=== PATIENT | female | born 1940 | race Caucasian/White ===

== ENCOUNTER → 2017-07-21 | Outpatient (CLI) | payer MEDICARE ==
[~2017-07-21] MED LIST: ACYC400 PO; BENA20 PO; CHOL10002 PO; FEOSOL PO; FERSU220EL PO; FOLI1; FOLI1 PO; GABA300 PO; HYDACE10B PO; HYDR-86 PO; IRBE150 PO; LEVSOD50 PO; LEVSOD75 PO; METTREX2.5 PO; Norco 7.5-3251 EACH PO; OMEP20ER PO; OSTERA TABLET1 EACH PO; PROZAC20 MG PO; RANI150 PO; Rituxan10 MG/ML IV; TAMS.4ER PO; TRAZ150T57; TRAZ50 PO
== END | disposition home or self-care (01) ==
LOC: LAB SHORT 07:15 → PLD 07:15
DX: L57.0 Actinic keratosis (principal)
CPT/HCPCS: 88305

== ENCOUNTER 2019-04-25 13:54 | Inpatient (IN) | payer MEDICARE ==
[~2019-04-25] VITALS: Ht 152.4 cm; Wt 44.9 kg
[~2019-04-25 13:54] MED LIST changes: -CHOL10002 PO; -FEOSOL PO; -FOLI1; +Feosol45 MG PO; +Norco 10-325 T1 EACH PO; -Norco 7.5-3251 EACH PO; +TRAZ150T57 PO; -TRAZ50 PO; +VITAMIN D325 MCG PO
[2019-04-25] MEDS ORDERED: ALEN70 PO (14:11)
[2019-04-25] MEDS ORDERED: CARVEDILOL12.5 MG PO (14:12)
[2019-04-25] MEDS ORDERED: ACTEMRA80 MG/4 ML IV (14:12)
[2019-04-25] MEDS ORDERED: OMEPRAZOLE MAGN20 MG PO (14:13)
[2019-04-25] MEDS ORDERED: Prozac20 MG PO (14:13)
[2019-04-25] MEDS ORDERED: TAMS.4ER PO (14:14)
[2019-04-25] MEDS ORDERED: ATOR40TA PO (14:15)
[2019-04-25 14:48] LABS: Source, Urine Catheter
[2019-04-25 14:50] LABS: Bilirubin, Urine Neg (Neg); Blood, Urine Neg (Neg); Glucose Qualitative, Urine Neg (Neg); Ketones, Urine Neg (Neg); Leukocyte Esterase, Urine Neg (Neg); Nitrite, Urine Neg (Neg); Protein, Urine Neg (Neg); Urobilinogen, Urine NORM (Normal)
[2019-04-25 14:51] LABS: Appearance, Urine Clear (Clear); Color, Urine Yellow (P-Yellow)
[2019-04-25] MEDS ORDERED: ASCO500 PO (15:39)
[2019-04-25] MEDS ORDERED: ACYC800 PO (15:40)
[2019-04-25 15:47] LABS: BASOPHILS ABSOLUTE AUTO 0.06 K/mm3 (0.00-0.23); BASOPHILS PERCENT AUTO 1 % (0-2); EOSINOPHILS ABSOLUTE AUTO 0.18 K/mm3 (0.00-0.68); EOSINOPHILS PERCENT AUTO 2 % (0-6); Hematocrit 34.8 % (33.0-51.0); Hemoglobin 11.4 g/dL (11.5-16.0); IMMATURE GRAN ABSOLUTE AUTO 0.03 K/mm3 (0.00-0.10); IMMATURE GRAN PERCENT AUTO 0 % (0-1); LYMPHOCYTES ABSOLUTE AUTO 2.21 K/mm3 (0.84-5.20); LYMPHOCYTES PERCENT AUTO 25 % (21-46); MONOCYTES ABSOLUTE AUTO 1.03 K/mm3 (0.16-1.47); MONOCYTES PERCENT AUTO 11 % (4-13); Mean Corpuscular HGB 31.2 pg (26.0-34.0); Mean Corpuscular HGB Conc 32.8 g/dL (31.5-36.5); Mean Corpuscular Volume 95 fL (80-100); Mean Platelet Volume 9.9 fL (9.1-12.4); NEUTROPHILS PERCENT AUTO 61 % (41-73); Platelet Count 219 K/mm3 (150-400); RDW Coefficient Variation 12.9 % (11.7-14.2); RDW Standard Deviation 45.4 fL (35.1-46.3); Red Blood Cell Count 3.65 M/mm3 (3.80-5.20); White Blood Cell Count 9.01 K/mm3 (4.00-11.30)
[2019-04-25 16:01] LABS: International Normalized Ratio 1.04
[2019-04-25 16:11] LABS: Albumin, Blood 3.7 g/dL (3.4-5.0); Albumin/Globulin Ratio 1.3 (0.8-1.8); Bilirubin, Total 0.2 mg/dL (0.1-1.0); Bun/Creatinine Ratio 16.4 (12.0-20.0); Calcium, Blood 8.4 mg/dL (8.5-10.1); Creatinine, Blood 1.1 mg/dL (0.40-1.00); Globulin, Blood 2.9 g/dL (2.2-4.0); Potassium, Blood 4.2 mmol/L (3.5-5.5); Total Protein, Blood 6.6 g/dL (6.4-8.2)
--- NOTE | 2019-04-25 18:02 | NUR ---
TRANSFER TO SURG PT ARRIVED TO UNIT FROM ED VIA GURNEY AT 1800 TODAY. REPORTS PAIN AT TOLERABLE LEVEL AT 5/10. A&O W/VSS. REN IN PLACE AND PATENT. CURRENTLY VISITING WITH DAUGHTER IN ROOM AND HAS CALL LIGHT WITHIN REACH.
--- NOTE | 2019-04-25 23:50 | NUR ---
ASSUMED CARE FROM RANDAL SROIA.
--- NOTE | 2019-04-26 04:03 | NUR ---
SHIFT SUMMARY NO ACUTE CHANGES SINCE ASSUMING CARE OF PATIENT. SHE HAS BEEN RESTING IN BED DURING SHIFT. DENIES NEEDS AT THIS TIME. PLAN IS FOR SURGERY AT SOME POINT DURING TODAY. AA0X4, VSS.
[2019-04-26 04:09] LABS: BASOPHILS ABSOLUTE AUTO 0.06 K/mm3 (0.00-0.23); BASOPHILS PERCENT AUTO 1 % (0-2); EOSINOPHILS ABSOLUTE AUTO 0.25 K/mm3 (0.00-0.68); EOSINOPHILS PERCENT AUTO 4 % (0-6); Hematocrit 32.4 % (33.0-51.0); Hemoglobin 10.6 g/dL (11.5-16.0); IMMATURE GRAN ABSOLUTE AUTO 0.02 K/mm3 (0.00-0.10); IMMATURE GRAN PERCENT AUTO 0 % (0-1); LYMPHOCYTES ABSOLUTE AUTO 2.39 K/mm3 (0.84-5.20); LYMPHOCYTES PERCENT AUTO 42 % (21-46); MONOCYTES ABSOLUTE AUTO 0.77 K/mm3 (0.16-1.47); MONOCYTES PERCENT AUTO 14 % (4-13); Mean Corpuscular HGB 31.5 pg (26.0-34.0); Mean Corpuscular HGB Conc 32.7 g/dL (31.5-36.5); Mean Corpuscular Volume 96 fL (80-100); NEUTROPHILS ABSOLUTE AUTO 2.15 K/mm3 (1.96-9.15); NEUTROPHILS PERCENT AUTO 38 % (41-73); Platelet Count 196 K/mm3 (150-400); RDW Coefficient Variation 13.2 % (11.7-14.2); RDW Standard Deviation 46.8 fL (35.1-46.3); Red Blood Cell Count 3.37 M/mm3 (3.80-5.20); White Blood Cell Count 5.64 K/mm3 (4.00-11.30)
[2019-04-26 04:27] LABS: Albumin, Blood 3.1 g/dL (3.4-5.0); Albumin/Globulin Ratio 1.1 (0.8-1.8); Bilirubin, Total 0.2 mg/dL (0.1-1.0); Bun/Creatinine Ratio 14.3 (12.0-20.0); Creatinine, Blood 1.05 mg/dL (0.40-1.00); Globulin, Blood 2.7 g/dL (2.2-4.0); Potassium, Blood 4.3 mmol/L (3.5-5.5); Total Protein, Blood 5.8 g/dL (6.4-8.2)
--- NOTE | 2019-04-26 12:00 | NUR ---
PT TO HAVE PROCEDURE IN OWN BED, FAMILY PRESENT. PT BEEN NPO EXCEPT MED WITH SIP OF WATER.
--- NOTE | 2019-04-26 12:02 | NUR ---
History, Chart, Medications and Allergies reviewed before start of procedure. Patient confirms NPO status and agrees with scheduled surgery.
--- NOTE | 2019-04-26 14:50 | NUR ---
PT BACK FROM HAVING PROCEDURE. PT REPORTS PAIN DOING BETTER AT THIS TIME. PT ABLE TO WIGGLE TOES. PAS IN PLACE. PT DRESSING HAS A SMALL AMT OF DRAINAGE ON BOTTOM DRESSING. FAMILY PRESENT.
--- NOTE | 2019-04-26 18:04 | NUR ---
SHIFT SUMMARY PT HAD PROCEDURE TODAY. PT EATING AND DRINKING. PT HAS REN IN PLACE. PT WORKED WITH THERAPY THIS AFTERNOON. IV WAS PLACED BY PUBLIC SPEAKING INSTRUCTOR AFTER PT'S IV WAS LEAKING. PT BEEN ASSISTED WITH ADL'S PRN. PT USING CALL LIGHT APPR.
[2019-04-27 04:14] LABS: BASOPHILS ABSOLUTE AUTO 0.04 K/mm3 (0.00-0.23); BASOPHILS PERCENT AUTO 1 % (0-2); EOSINOPHILS ABSOLUTE AUTO 0.24 K/mm3 (0.00-0.68); EOSINOPHILS PERCENT AUTO 3 % (0-6); Hematocrit 22.1 % (33.0-51.0); IMMATURE GRAN ABSOLUTE AUTO 0.03 K/mm3 (0.00-0.10); IMMATURE GRAN PERCENT AUTO 0 % (0-1); LYMPHOCYTES ABSOLUTE AUTO 1.83 K/mm3 (0.84-5.20); LYMPHOCYTES PERCENT AUTO 21 % (21-46); MONOCYTES ABSOLUTE AUTO 0.79 K/mm3 (0.16-1.47); MONOCYTES PERCENT AUTO 9 % (4-13); Mean Corpuscular HGB 31.3 pg (26.0-34.0); Mean Corpuscular HGB Conc 31.7 g/dL (31.5-36.5); Mean Platelet Volume 10.3 fL (9.1-12.4); NEUTROPHILS ABSOLUTE AUTO 5.68 K/mm3 (1.96-9.15); NEUTROPHILS PERCENT AUTO 66 % (41-73); Platelet Count 147 K/mm3 (150-400); RDW Coefficient Variation 12.9 % (11.7-14.2); RDW Standard Deviation 46.5 fL (35.1-46.3); Red Blood Cell Count 2.24 M/mm3 (3.80-5.20); White Blood Cell Count 8.61 K/mm3 (4.00-11.30)
[2019-04-27 04:16] LABS: Mean Corpuscular Volume 99 fL (80-100)
--- NOTE | 2019-04-27 05:20 | NUR ---
SHIFT SUMMARY PT POD#1 RIGHT HIP TFN. AAOX4. DISCOMFORT AT TOLERABLE LEVEL T/O NIGHT, DENIES NAUSEA/EMESIS. RIGHT HIP MEPILEX "SCRATCHED OFF" PER PT, REPLACED AT BEGINNING OF SHIFT WITH QUARTER SIZE DRAINAGE NOTED ON UPPER MEPILEX + LARGE AMOUNT RED DRAINAGE IN LOWER MEPILEX. PPP, DENIES N/T BLE, MOVES TOES WELL. PT REFUSED TO BE ASSISTED TO REPOSITION T/O NIGHT. PT EDUCATED REGARDING THE IMPORTANCE OF REPOSITIONING + PT AGREED TO REPOSITION SELF WHILE IN BED, CONTINUE TO ENCOURAGE TODAY. MIKAL TO BE DC'D THIS AM UPON PT'S AWAKENING. PT RESTING WELL AT THIS TIME WITH CALL LIGHT IN REACH.
--- NOTE | 2019-04-27 07:28 | NUR ---
LOW H+H DR RICKS NOTIFIED, NEW ORDERS OBTAINED TO TRANSFUSE 1 UNIT PRBCs NOW. DAY SHIFT RN NOTIFIED.
--- NOTE | 2019-04-27 08:11 | NUR ---
DISCUSSED PT'S STATUS WITH DORYS (SHARON) WHO REPORTS SHE CHANGED THE DRESSINGS. DISCUSSED DR RICKS'S ORDER FOR PRBC. DORYS REPORTS TO HOLD ASA FOR NOW.
--- NOTE | 2019-04-27 09:55 | NUR ---
DR RICKS HERE TO SEE PT.
--- NOTE | 2019-04-27 15:08 | NUR ---
UNIT OF BLOOD COMPLETE. PT REPORTS PAIN 07/19. THERAPY HERE TO WORK WITH PT. FAMILY PRESENT. PT LS CLEAR. PT TOLERATED WELL.
--- NOTE | 2019-04-27 15:10 | NUR ---
DORYS REPORTS TALKING WITH DR DAVID AND TO HOLD ASPIRIN TODAY AND RESUME TOMMORROW IF NO CONTRAINDICATIONS.
--- NOTE | 2019-04-27 16:29 | NUR ---
SHIFT SUMMARY PT EATING AND DRINKING. PT HAS REN. PT PASSING GAS. PT RECIEVED A UNIT OF BLOOD TODAY, TOLERATED IT WELL. PT WORKED WITH THERAPY TODAY. PT UP IN CHAIR THIS AFTERNOON. PT PAIN BEEN WELL CONTROLLED TODAY WITH PO PAIN MEDICATION.
--- NOTE | 2019-04-27 16:45 | NUR ---
OTHER YANG Jonas GIVEN REPORT AND IS ASSUMING CARE OF PT.
--- NOTE | 2019-04-27 18:18 | NUR ---
UPDATE PT HAS BEEN RESTING IN CHAIR SINCE ASSUMING CARE. TOLERATING DINNER TRAY WELL.
--- NOTE | 2019-04-27 23:25 | NUR ---
Pt AAOx4. VSS. Saline locked. Luis PO. No complaints of pain. Aquacell dressing x2 to R Hip; DCI. South cath in place, clear/yellow urine. patient resting comfortably at this time.
[2019-04-28 04:52] LABS: BASOPHILS ABSOLUTE AUTO 0.04 K/mm3 (0.00-0.23); BASOPHILS PERCENT AUTO 1 % (0-2); EOSINOPHILS ABSOLUTE AUTO 0.38 K/mm3 (0.00-0.68); EOSINOPHILS PERCENT AUTO 5 % (0-6); Hematocrit 25.4 % (33.0-51.0); Hemoglobin 8.3 g/dL (11.5-16.0); IMMATURE GRAN ABSOLUTE AUTO 0.02 K/mm3 (0.00-0.10); IMMATURE GRAN PERCENT AUTO 0 % (0-1); LYMPHOCYTES ABSOLUTE AUTO 2.15 K/mm3 (0.84-5.20); LYMPHOCYTES PERCENT AUTO 31 % (21-46); MONOCYTES ABSOLUTE AUTO 0.88 K/mm3 (0.16-1.47); MONOCYTES PERCENT AUTO 13 % (4-13); Mean Corpuscular HGB 30.4 pg (26.0-34.0); Mean Corpuscular HGB Conc 32.7 g/dL (31.5-36.5); Mean Platelet Volume 10.5 fL (9.1-12.4); NEUTROPHILS ABSOLUTE AUTO 3.52 K/mm3 (1.96-9.15); NEUTROPHILS PERCENT AUTO 50 % (41-73); Platelet Count 131 K/mm3 (150-400); RDW Coefficient Variation 13.6 % (11.7-14.2); RDW Standard Deviation 46.2 fL (35.1-46.3); Red Blood Cell Count 2.73 M/mm3 (3.80-5.20); White Blood Cell Count 6.99 K/mm3 (4.00-11.30)
[2019-04-28 04:54] LABS: Mean Corpuscular Volume 93 fL (80-100)
[2019-04-28 05:10] LABS: Anion Gap 4 mmol/L (6-16); Blood Urea Nitrogen 11 mg/dL (8-24); Bun/Creatinine Ratio 12.4 (12.0-20.0); CO2, Blood 28 mmol/L (21-32); Chloride, Blood 109 mmol/L (98-108); Creatinine, Blood 0.89 mg/dL (0.40-1.00); Glomerular Filtration Rate >60 (60-); Glucose, Blood 105 mg/dL (70-99); Sodium, Blood 141 mmol/L (136-145)
--- NOTE | 2019-04-28 06:31 | NUR ---
AAOx4. CMS INTACT. Mild complaints of pain, medicated per orders. South catheter removed.
--- NOTE | 2019-04-28 09:22 | NUR ---
DR. RICKS IN TO SEE PT AT 091. PT CURRENTLY UP IN CARE WORKING WITH THERAPY. DAUGHTER AT BEDSIDE. DENIES PAIN AT THIS TIME.
--- NOTE | 2019-04-28 12:08 | NUR ---
NURSE NOTE PT AMBULATED TO BATHROOM AND VOIDED FOR FIRST TIME POST REN REMOVAL. REPORTS TOLERATING ACTIVITY WELL AND DENIES PAIN. CURRENTLY UP IN BED, EATING LUNCH AND VISITING WITH SON.
--- NOTE | 2019-04-28 13:19 | NUR ---
PT WORKING WITH O/T AT THIS TIME. SON AT BEDSIDE
--- NOTE | 2019-04-28 13:32 | NUR ---
Pt.is in bed resting and talking with family members on visit , pt. may go home deuce ,offered prayers.
--- NOTE | 2019-04-28 16:20 | NUR ---
SHIFT SUMMARY POD 2 WITH NO ACUTE CHANGES T/O SHIFT. PT A/OX4 WITH VSS. AQUACEL DRESSING TO RIGHT HIP X2 C/D/I WITH SOME SHADOWING NOTED. POLAR PAC TO RIGHT HIP AREA TOLERATED BY PT. REPORTS PAIN WELL CONTROLLED WITH PO MEDICATION. TOLERATING DIET WELL, DENIES ANY N/V. WORKED WITH BOTH OT AND PHYSICAL THERAPY TODAY. UP IN CHAIR. AMBULATED TO BATHROOM X3. PT IS CURRENTLY WATCHING TV WITH CALL LIGHT IN REACH AND SON AT BEDSIDE.
[2019-04-29 04:51] LABS: Anion Gap 2 mmol/L (6-16); Blood Urea Nitrogen 15 mg/dL (8-24); CO2, Blood 32 mmol/L (21-32); Calcium, Blood 8.4 mg/dL (8.5-10.1); Chloride, Blood 105 mmol/L (98-108); Creatinine, Blood 0.94 mg/dL (0.40-1.00); Glomerular Filtration Rate >60 (60-); Glucose, Blood 106 mg/dL (70-99); Potassium, Blood 4.1 mmol/L (3.5-5.5); Sodium, Blood 139 mmol/L (136-145)
--- NOTE | 2019-04-29 07:32 | NUR ---
PT ALERT AND ORIENTED X4. VSS. CMS INTACT. DRESSING TO R THIGH SHADOWING PRESENT. UP WITH FWW AND ONE ASSIST. SALINE LOCKED. VOIDING. PAIN MANAGED WITH PO MEDS
[2019-04-29] MEDS ORDERED: ASPI325EC PO (12:52)
--- NOTE | 2019-04-29 13:14 | NUR ---
Pt. is doing well sitting in a chaoir resting wished pt. all the best.
--- NOTE | 2019-04-29 14:37 | NUR ---
DC INSTRUCTIONS GIVEN TO PT AND FAMILY, VERBALIZED UNDERSTANDING, PT DC LATER THIS EVENING WHEN FAMILY IS AVAILABLE TO TAKE HER HOME.
--- NOTE | 2019-04-29 17:36 | NUR ---
LELIA'D PABLO, W/ LELIA AMARO INSTRUCTIONS GIVEN EARLIER.
== END 2019-04-29 17:35 | disposition home health service (06) | DRG 481 ==
LOC: ER 13:54 → SURS 15:48
PROVIDERS: Emergency Medicine; Internal Medicine Endocrinology, Diabetes & Metabolism; Orthopaedic Surgery; ADMIT Family Medicine
PROC: 0QH606Z Insertion of Intramedullary Internal Fixation Device into Right Upper Femur, Open Approach (ICD-10-PCS; principal; 2019-04-26 12:30)
DX: S72.141A Displaced intertrochanteric fracture of right femur, initial encounter for closed fracture (principal); D62 Acute posthemorrhagic anemia; W01.0XXA Fall on same level from slipping, tripping and stumbling without subsequent striking against object, initial encounter; I12.9 Hypertensive chronic kidney disease with stage 1 through stage 4 chronic kidney disease, or unspecified chronic kidney disease; G47.33 Obstructive sleep apnea (adult) (pediatric); M81.0 Age-related osteoporosis without current pathological fracture; N18.2 Chronic kidney disease, stage 2 (mild); E03.9 Hypothyroidism, unspecified; M06.9 Rheumatoid arthritis, unspecified; K21.9 Gastro-esophageal reflux disease without esophagitis; F32.9 Major depressive disorder, single episode, unspecified; Z87.891 Personal history of nicotine dependence; Z88.6 Allergy status to analgesic agent; Z91.040 Latex allergy status
CPT/HCPCS: 36415; 36430; 51702; 71045; 73502; 80048; 80053; 81003; 85025; 85610; 85730; 86850; 86900; 86901; 86923; 93005; 93010; 96374-59; 97110; 97116; 97162; 97166; 97530; 97535; 99285-25; C1713; C1769; J0690; J1170; J1885; J2250; J2405; J2704; J3010; J7030; J7120; P9016

== ENCOUNTER → 2019-09-10 | Outpatient (CLI) | payer MEDICARE ==
[~2019-09-10] MED LIST changes: +ACTEMRA80 MG/4 ML IV; +ACYC800 PO; +ALEN70 PO; +ASCO500 PO; +ASPI325EC PO; +ATOR40TA PO; +CARVEDILOL12.5 MG PO; +OMEPRAZOLE MAGN20 MG PO; +Prozac20 MG PO
[2019-09-10 12:41] LABS: Campylobacter Sp Not Detected (NOT DETECT)
[2019-09-10 12:42] LABS: Adenovirus F 40/41 Not Detected (NOT DETECT); Astrovirus Not Detected (NOT DETECT); Cryptosporidium Not Detected (NOT DETECT); Cyclospora Cayetanensis Not Detected (NOT DETECT); E. Coli O157 Not Detected (NOT DETECT); Entamoeba Histolytica Not Detected (NOT DETECT); Enteroaggregative E. coli-EAEC Not Detected (NOT DETECT); Enteropathogenic E. coli-EPEC Not Detected (NOT DETECT); Enterotoxigenic E. coli-ETEC Not Detected (NOT DETECT); Giardia Lamblia Not Detected (NOT DETECT); Norovirus GI/GII Not Detected (NOT DETECT); Plesiomonas Shigelloides Not Detected (NOT DETECT); Rotavirus A Not Detected (NOT DETECT); Salmonella Sp Not Detected (NOT DETECT); Sapovirus Not Detected (NOT DETECT); Shiga Toxin-prod E. coli-STEC Not Detected (NOT DETECT); Shigella/Enteroin E. coli-EIEC Not Detected (NOT DETECT); Vibrio Cholerae Not Detected (NOT DETECT); Vibrio Sp Not Detected (NOT DETECT); Yersinia Enterocolitica Not Detected (NOT DETECT)
== END ==
LOC: LAB EV 07:00 → LAB FUT 09-07 12:45 → EDSTATUS 09-07 12:45
PROVIDERS: Family Medicine
DX: R19.7 Diarrhea, unspecified (principal); R10.9 Unspecified abdominal pain
CPT/HCPCS: 0097U

== ENCOUNTER → 2020-03-09 | Outpatient (CLI) | payer MEDICARE ==
[~2020-03-09] MED LIST changes: +ACTEMRA200 MG/10; +BENAZEPRIL HCL20 MG PO; +Flomax0.4 MG PO; +TRAZ50 PO; +Vitamin D2000 UNIT PO
[2020-03-10 15:09] LABS: HPV 16 Negative (Negative); HPV 18 Negative (Negative); HPV OTHER HR TYPES Negative (Negative)
== END ==
LOC: LAB SHORT 14:42 → LAB 14:42
PROVIDERS: Family Medicine
DX: Z12.4 Encounter for screening for malignant neoplasm of cervix (principal)
CPT/HCPCS: 87624; G0123

== ENCOUNTER → 2022-10-01 | Outpatient (CLI) | payer MEDICARE | END | disposition home or self-care (01) | LOC: LAB SHORT 11:04 | DX: D04.71 Carcinoma in situ of skin of right lower limb, including hip (principal) | CPT/HCPCS: 88305 ==

== ENCOUNTER 2022-11-19 20:09 | Inpatient (IN) | payer MEDICARE ==
[~2022-11-19] VITALS: Ht 149.9 cm; Wt 37.8 kg
[2022-11-19 20:28] LABS: BASOPHILS ABSOLUTE AUTO 0.04 K/mm3 (0.00-0.23); BASOPHILS PERCENT AUTO 1 % (0-2); EOSINOPHILS ABSOLUTE AUTO 0.23 K/mm3 (0.00-0.68); EOSINOPHILS PERCENT AUTO 4 % (0-6); IMMATURE GRAN ABSOLUTE AUTO 0.01 K/mm3 (0.00-0.10); IMMATURE GRAN PERCENT AUTO 0 % (0-1); LYMPHOCYTES ABSOLUTE AUTO 2.29 K/mm3 (0.84-5.20); LYMPHOCYTES PERCENT AUTO 39 % (21-46); MONOCYTES ABSOLUTE AUTO 1.21 K/mm3 (0.16-1.47); MONOCYTES PERCENT AUTO 21 % (4-13); Mean Corpuscular HGB 32.3 pg (26.0-34.0); Mean Corpuscular HGB Conc 32.3 g/dL (31.5-36.5); Mean Corpuscular Volume 100 fL (80-100); Mean Platelet Volume 9.7 fL (9.1-12.4); NEUTROPHILS ABSOLUTE AUTO 2.11 K/mm3 (1.96-9.15); NEUTROPHILS PERCENT AUTO 36 % (41-73); Platelet Count 203 K/mm3 (150-400); RDW Coefficient Variation 12.7 % (11.7-14.2); RDW Standard Deviation 46.4 fL (35.1-46.3); White Blood Cell Count 5.89 K/mm3 (4.00-11.30)
[2022-11-19 20:50] LABS: Albumin, Blood 3.2 g/dL (3.4-5.0); Albumin/Globulin Ratio 1.5 (0.8-1.8); Bilirubin, Total 0.2 mg/dL (0.1-1.0); Bun/Creatinine Ratio 15.8 (12.0-20.0); Creatinine, Blood 2.09 mg/dL (0.40-1.00); Globulin, Blood 2.2 g/dL (2.2-4.0); Potassium, Blood 3.9 mmol/L (3.5-5.5); Total Protein, Blood 5.4 g/dL (6.4-8.2)
[2022-11-19] MEDS ORDERED: HYDSUL200 PO (22:37)
[2022-11-19] MEDS ORDERED: ATOR40TA PO ×2 (22:41→23:48)
[2022-11-19] MEDS ORDERED: TIMDOROPSO RIGHTEYE (22:44)
[2022-11-19] MEDS ORDERED: HYDROCODONE-AC1 EA10 PO (22:48)
[2022-11-19 23:04] VITALS: BP 133/54
--- NOTE | 2022-11-19 23:44 | NUR ---
ADMIT NOTE 82 YR OLD FEMALE ADMITTED TO FLOOR FROM THE ED WITH DX OF ACUTE KIDNEY INJURY. ALERT AND OREINTED. ED RN REPORTED PT ARRIVED IN THE ED VIA EMT WHO REPORTED PT WEAK AND FALLS. ORIENTED TO USE OF CALL LIGHT. RAILS UP X 3. BED ALARM ON FOR SAFETY. CALL LIGHT IN REACH. IVF OF NS INFUSING AT 100 ML/HR. VSS. DENIES CHEST PAIN AND VERTIGO. WILL CONTINUE TO MONITOR.
[2022-11-19] MEDS ORDERED: CYMBALTA30 M2 PO (23:46)
[2022-11-20 02:42] VITALS: BP 109/53
--- NOTE | 2022-11-20 04:22 | NUR ---
RESIDENTIAL PROGRAM DIRECTOR SUMMARY ADMITTED EARLIER IN THE SHIFT WITH DX OF ACUTE KIDNEY INJURY. ALERT AND ORIENTED. IV FLUIDS, INCLUDING POTASSIUM INFUSING PER MD ORDERS. ED REPORTED PT HAD BEEN ADMITTED WITH WEAKNESS AND FALLS. HAS BEEN RESTING QUIETLY WITH FEW INTERRUPTIONS. NO C/O VERTIGO. VSS. NO NOTED S/S ACUTE PHYSICAL DISTRESS. CALL LIGHT IN REACH. BED ALARM ON. WILL CONTINUE TO MONITOR
[2022-11-20 04:44] LABS: BASOPHILS ABSOLUTE AUTO 0.04 K/mm3 (0.00-0.23); BASOPHILS PERCENT AUTO 1 % (0-2); EOSINOPHILS ABSOLUTE AUTO 0.25 K/mm3 (0.00-0.68); EOSINOPHILS PERCENT AUTO 4 % (0-6); Hematocrit 32.5 % (33.0-51.0); Hemoglobin 10.7 g/dL (11.5-16.0); IMMATURE GRAN ABSOLUTE AUTO 0.01 K/mm3 (0.00-0.10); IMMATURE GRAN PERCENT AUTO 0 % (0-1); LYMPHOCYTES ABSOLUTE AUTO 1.76 K/mm3 (0.84-5.20); LYMPHOCYTES PERCENT AUTO 29 % (21-46); MONOCYTES ABSOLUTE AUTO 1.28 K/mm3 (0.16-1.47); MONOCYTES PERCENT AUTO 21 % (4-13); Mean Corpuscular HGB 32.1 pg (26.0-34.0); Mean Corpuscular HGB Conc 32.9 g/dL (31.5-36.5); Mean Corpuscular Volume 98 fL (80-100); Mean Platelet Volume 9.5 fL (9.1-12.4); NEUTROPHILS ABSOLUTE AUTO 2.77 K/mm3 (1.96-9.15); NEUTROPHILS PERCENT AUTO 45 % (41-73); Platelet Count 220 K/mm3 (150-400); RDW Coefficient Variation 12.7 % (11.7-14.2); RDW Standard Deviation 45.5 fL (35.1-46.3); Red Blood Cell Count 3.33 M/mm3 (3.80-5.20); White Blood Cell Count 6.11 K/mm3 (4.00-11.30)
[2022-11-20 05:11] LABS: Albumin, Blood 3.2 g/dL (3.4-5.0); Albumin/Globulin Ratio 1.3 (0.8-1.8); Bilirubin, Total 0.2 mg/dL (0.1-1.0); Bun/Creatinine Ratio 17.5 (12.0-20.0); Calcium, Blood 7.4 mg/dL (8.5-10.1); Creatinine, Blood 1.89 mg/dL (0.40-1.00); Globulin, Blood 2.4 g/dL (2.2-4.0); Potassium, Blood 4.3 mmol/L (3.5-5.5); Total Protein, Blood 5.6 g/dL (6.4-8.2)
--- NOTE | 2022-11-20 06:43 | NUR ---
DAUGHTER CALLED, VOICED SHE WILL COME IN TO SEE PT THIS AM. VOICED SHE WAS HER MOTHERS SUPPORT PERSON.
[2022-11-20 07:32] VITALS: BP 137/66
[2022-11-20 16:12] VITALS: BP 140/74
[2022-11-20 19:33] VITALS: BP 128/77
[2022-11-21 03:40] VITALS: BP 147/74
--- NOTE | 2022-11-21 04:08 | NUR ---
SHIFT SUMMARY PATIENT HAD NO ACUTE CHANGES. AXOX 4 AND INDEPENDENT IN ROOM. PIV REMAINS INTACT. NS INFUSING AT 75mL/HR. DENIES CHEST PAIN, SOB, AND N/V. VSS/AFEBRILE. SLEPT MOST OF SHIFT. COOPERATIVE WITH CARE. CALL LIGHT IN REACH. BED IN LOWEST POSITION. WILL CONTINUE TO MONITOR UNTIL DAY SHIFT NURSE ASSUMES CARE.
[2022-11-21 04:56] LABS: BASOPHILS ABSOLUTE AUTO 0.05 K/mm3 (0.00-0.23); BASOPHILS PERCENT AUTO 1 % (0-2); EOSINOPHILS PERCENT AUTO 3 % (0-6); Hematocrit 32.4 % (33.0-51.0); IMMATURE GRAN ABSOLUTE AUTO 0.02 K/mm3 (0.00-0.10); IMMATURE GRAN PERCENT AUTO 0 % (0-1); LYMPHOCYTES ABSOLUTE AUTO 1.67 K/mm3 (0.84-5.20); LYMPHOCYTES PERCENT AUTO 27 % (21-46); MONOCYTES ABSOLUTE AUTO 0.95 K/mm3 (0.16-1.47); MONOCYTES PERCENT AUTO 15 % (4-13); Mean Corpuscular HGB 31.8 pg (26.0-34.0); Mean Corpuscular Volume 94 fL (80-100); Mean Platelet Volume 9.7 fL (9.1-12.4); NEUTROPHILS ABSOLUTE AUTO 3.27 K/mm3 (1.96-9.15); NEUTROPHILS PERCENT AUTO 53 % (41-73); Platelet Count 221 K/mm3 (150-400); RDW Coefficient Variation 12.3 % (11.7-14.2); RDW Standard Deviation 42.7 fL (35.1-46.3); Red Blood Cell Count 3.46 M/mm3 (3.80-5.20); White Blood Cell Count 6.16 K/mm3 (4.00-11.30)
[2022-11-21 05:13] LABS: Magnesium, Blood 2.2 mg/dL (1.6-2.4); Phosphorus, Blood 2.3 mg/dL (2.5-4.9)
[2022-11-21 07:53] VITALS: BP 150/99
[2022-11-21 08:24] LABS: Bun/Creatinine Ratio 15.5 (12.0-20.0); Calcium, Blood 7.5 mg/dL (8.5-10.1); Creatinine, Blood 1.48 mg/dL (0.40-1.00)
--- NOTE | 2022-11-21 11:09 | NUR ---
DC HOME. WRITTEN & VERBAL DC INSTRUCTIONS GIVEN TO PT WITH DTR PRESENT, BOTH VERBALIZED GOOD UNDERSTANDING. PT INFORMED TO CALL PCP FOR A HOSPITAL FOLLOW UP APPT. ALL CONCERNS & QUESTIONS ADDRESSED. NO NEW MEDS ORDERED. PT REFUSED HOME HEALTH THAT WAS OFFERED TO HER PER MS ORDER. PIV DC'D WITH CATH TIP INTACT, NO REDNESS OR SWELLING NOTED. PT WHEELED OUT VIA W/C WITH ALL PERSONAL BELONGINGS TO DTR'S PRIVATE VEHICLE.
== END 2022-11-21 12:06 | disposition home health service (06) | DRG 683 ==
LOC: ER 20:09 → MEDS 20:10 → ENPENDDIS 11-20 11:07 → MEDS 11-20 16:49
PROVIDERS: Emergency Medicine; Family Medicine; Hospitalist; ADMIT Internal Medicine
DX: N17.9 Acute kidney failure, unspecified (principal); E44.0 Moderate protein-calorie malnutrition; Z68.1 Body mass index [BMI] 19.9 or less, adult; Z66 Do not resuscitate; I10 Essential (primary) hypertension; M06.9 Rheumatoid arthritis, unspecified; E86.0 Dehydration; N13.30 Unspecified hydronephrosis; D63.8 Anemia in other chronic diseases classified elsewhere; E89.0 Postprocedural hypothyroidism; K21.9 Gastro-esophageal reflux disease without esophagitis; I95.9 Hypotension, unspecified; E11.40 Type 2 diabetes mellitus with diabetic neuropathy, unspecified; E11.29 Type 2 diabetes mellitus with other diabetic kidney complication; E78.00 Pure hypercholesterolemia, unspecified; M81.0 Age-related osteoporosis without current pathological fracture; M47.9 Spondylosis, unspecified; W19.XXXA Unspecified fall, initial encounter; Z91.81 History of falling; Z88.8 Allergy status to other drugs, medicaments and biological substances; Z91.040 Latex allergy status; Z87.891 Personal history of nicotine dependence; Z98.890 Other specified postprocedural states; Z79.890 Hormone replacement therapy; Z79.899 Other long term (current) drug therapy
CPT/HCPCS: 36415; 71045; 76770; 80048; 80053; 82436; 83735; 83880; 84100; 84300; 84484; 85025; 93005; 93010; 96360; 96361; 96374; 97116; 97161; 97165; 97530; 99285-25; A9270; G0378; J3480; J7030